=== PATIENT | female | born 1950 | race Two or more races ===

== ENCOUNTER → 2017-05-08 | Outpatient (CLI) | payer OTHER, MEDICAID | LOC: FIMAGING 10:45 | PROVIDERS: ATTEND Family Medicine | DX: Z13.820 Encounter for screening for osteoporosis (principal); M81.0 Age-related osteoporosis without current pathological fracture; Z78.0 Asymptomatic menopausal state ==

== ENCOUNTER 2017-09-12 21:47 | Emergency (ER) | payer OTHER, MEDICAID ==
[2017-09-12 21:54] VITALS: BP 167/91; PULSE 110; RESP 18; TEMP 98.4; O2SAT 96
--- NOTE | 2017-09-12 22:16 | EDPHY ---
H & P Time Seen by Provider: 09/12/17 21:57 HPI/ROS: CHIEF COMPLAINT: Itchy rash History by patient HISTORY OF PRESENT ILLNESS: 66-year-old woman presents complaining of itchy rash which began early this morning after she took a 2nd dose of Augmentin. Patient was started on Augmentin for presumed diverticulitis after her primary care physician found some lower abdominal discomfort on physical exam. Patient denies any ongoing abdominal pain, nausea, vomiting, food intolerance, diarrhea , constipation or bloody stools. Patient states that after she took the 2nd dose of Augmentin she began getting really itchy and develops a rash. She took a dose of Benadryl which seemed to improve it. She saw her primary care physician again today who recommended stopping the Augmentin and started her on prednisone. Patient returns tonight because of persistence of the itchy rash. She has not taken any more Benadryl since early this morning. Patient denies any fever chills. She has had no nausea or vomiting. She denies any throat tightness or shortness of breath or chest pain. She has no prior history of allergy. REVIEW OF SYSTEMS: As in HPI, and all other systems reviewed and are negative Smoking Status: Never smoked Physical Exam: General Appearance: Alert, nontoxic-appearing. Speaking full sentences, scratching Head: normocephalic, atraumatic Eyes: Pupils equal and round, reactive to light, no pallor or injection. Mouth: Mucous membranes moist. Otherwise clear, no drooling or stridor Respiratory: Normal, effort, lungs are clear to auscultation. No wheezes, rales or rhonchi. Cardiovascular: Regular rate and rhythm. S1, S2, no murmurs, gallops or rubs appreciated Gastrointestinal: Abdomen is soft and nontender, no masses, bowel sounds normal. Back: No CVA tenderness, no bony tenderness Neurological: Awake, alert and oriented x 3, no pronator drift, normal gait, no pronator drift Skin: Warm and dry, diffuse urticarial rash on face, arms and trunk and legs Musculoskeletal: No deformities or tenderness. Extremities: full range of motion, no edema, DP2+ bilat Psychiatric: Patient has normal affect, there is no agitation. Constitutional: Initial Vital Signs Temperature (C) 36.9 C 09/12/17 21:48 Heart Rate 110 H 09/12/17 21:48 Respiratory Rate 18 09/12/17 21:48 Blood Pressure 167/91 H 09/12/17 21:48 O2 Sat (%) 96 09/12/17 21:48 O2 Delivery Mode Room Air Allergies/Adverse Reactions: No Known Allergies Allergy (Verified 05/09/15 13:50) Home Medications: Medication Instructions Recorded Augmentin 875 MG TAB (*) 09/12/17 Cyclobenzaprine 5 mg PO DAILY 09/12/17 Gabapentin 09/12/17 [place] 5/325 (*) 09/12/17 Omeprazole 20 mg PO DAILY 09/12/17 Prednisone 20 mg PO 09/12/17 MDM/Departure - [facility] ED Course/Re-evaluation: 66-year-old woman presents with urticarial rash after starting Augmentin for diverticulitis. 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 There is no evidence of anaphylaxis or airway involvement. I am recommending the patient take more Benadryl tonight and switch to cetirizine tomorrow. She can continue the prednisone that was prescribed by her primary care physician. We discussed that she should consider herself allergic to amoxicillin. Patient is discharged home in stable condition. - Depart Disposition: Home, Routine, Self-Care Clinical Impression: Urticaria Allergic reaction caused by a drug Qualifiers: Encounter type: initial encounter Qualified Code(s): T78.40XA - Allergy, unspecified, initial encounter Condition: Good Instructions: Antibiotic Medication Allergy (ED) Additional Instructions: You were seen by Dr. Genie Harley today. Take 2 diphenhydramine 25 mg tablets when you get home tonight before bed for the itchy rash. Tomorrow switch from diphenhydramine to cetirizine (Zyrtec) 10 mg once daily. Continue to take the prednisone for the next 5 days. Stop taking the antibiotics and consider herself allergic to amoxicillin. Return for any worsening or new concerns. Referrals: Sunni Cross MD [Primary Care Provider] - As per Instructions Print Language: Yakut
== END 2017-09-12 22:30 | disposition home or self-care (01) ==
LOC: CED 21:47
DX: L50.0 Allergic urticaria (principal); T36.0X5A Adverse effect of penicillins, initial encounter